=== PATIENT | male | born 1990 | race Two or more races ===

== ENCOUNTER 2020-07-07 07:50 | Outpatient (CLI) | payer OTHER | END 2020-07-07 08:01 | disposition home or self-care (01) | LOC: LAB 07:50 | PROVIDERS: ATTEND Internal Medicine | DX: E03.8 Other specified hypothyroidism (principal); I10 Essential (primary) hypertension; M54.5 Low back pain; Z01.810 Encounter for preprocedural cardiovascular examination; E78.89 Other lipoprotein metabolism disorders; E55.9 Vitamin D deficiency, unspecified; E11.51 Type 2 diabetes mellitus with diabetic peripheral angiopathy without gangrene ==

== ENCOUNTER → 2020-07-10 15:05 | Outpatient (CLI) | payer OTHER ==
[~2020-07-10 15:05] MED LIST: CHLORDIAZEPOXID25 MG PO
== END | disposition home or self-care (01) ==
LOC: LAB 15:05
PROVIDERS: ATTEND Internal Medicine
DX: I10 Essential (primary) hypertension (principal); M54.5 Low back pain; Z01.810 Encounter for preprocedural cardiovascular examination; E03.8 Other specified hypothyroidism; E78.89 Other lipoprotein metabolism disorders; E55.9 Vitamin D deficiency, unspecified; E11.51 Type 2 diabetes mellitus with diabetic peripheral angiopathy without gangrene

== ENCOUNTER 2020-07-10 19:33 | Emergency (ER) | payer OTHER ==
[~2020-07-10] VITALS: Ht 175.3 cm; Wt 77.1 kg
[2020-07-11] MEDS ORDERED: CHLORDIAZEPOXID25 MG PO (00:41)
[2020-08-25] MEDS ORDERED: ACETAMINOPHEN650 M2 (13:31)
== END 2020-07-11 00:49 | disposition home or self-care (01) ==
LOC: ER 19:33
DX: R20.2 Paresthesia of skin (principal); G25.2 Other specified forms of tremor; F10.239 Alcohol dependence with withdrawal, unspecified; F10.221 Alcohol dependence with intoxication delirium

== ENCOUNTER → 2021-02-21 07:53 | Outpatient (CLI) | payer OTHER ==
[~2021-02-21 07:53] MED LIST changes: +ACETAMINOPHEN650 M2
== END | disposition home or self-care (01) ==
LOC: LAB 07:53
PROVIDERS: ATTEND Obstetrics & Gynecology
DX: Z20.818 Contact with and (suspected) exposure to other bacterial communicable diseases (principal)